=== PATIENT | male | born 1965 | race Caucasian/White ===

== ENCOUNTER 2017-09-03 12:39 | Inpatient (IN) | payer OTHER, MEDICARE ==
[~2017-09-03] VITALS: Ht 188 cm; Wt 97.1 kg
[2017-09-03 12:54] VITALS: BP 144/99; PULSE 77; RESP 18; TEMP 98.1; O2SAT 98
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
[2017-09-03 16:35] LABS: AUTOMATED NEUTROPHIL # 6.4 TH/MM3 (1.8-7.7); BASOPHIL % 0.5 % (0.0-2.0); EOSINOPHIL # 0.1 TH/MM3 (0-0.4); EOSINOPHIL % 1.4 % (0.0-4.0); HEMO FLAGS DIFF FINAL; LYMPH % 20.6 % (9.0-44.0); LYMPHOCYTE # 1.9 TH/MM3 (1.0-4.8); MEAN CELL VOLUME 84.5 FL (80.0-100.0); MEAN CORPUSCULAR HEMOGLOBIN 29.3 PG (27.0-34.0); MEAN CORPUSCULAR HGB CONC 34.6 % (32.0-36.0); MONO % 6.7 % (0.0-8.0); NEUT % 70.8 % (16.0-70.0); PLATELET COUNT 161 TH/MM3 (150-450); RED BLOOD COUNT 5.09 MIL/MM3 (4.50-5.90); RED CELL DISTRIBUTION WIDTH 14.4 % (11.6-17.2)
[2017-09-03 16:49] LABS: ANION GAP 3 MEQ/L (5-15); AST (GOT) 22 U/L (15-37); BICARBONATE 32.7 MEQ/L (21.0-32.0); BLOOD UREA NITROGEN 16 MG/DL (7-18); CHLORIDE 101 MEQ/L (98-107); GLOMERULAR FILTRATION RATE 61 ML/MIN (>89); POTASSIUM 4.5 MEQ/L (3.5-5.1); SODIUM (NA) 137 MEQ/L (136-145)
[2017-09-03 16:50] LABS: ALT (GPT) 39 U/L (12-78)
[2017-09-03 16:52] LABS: ALCOHOL LESS THAN 3 MG/DL (0-5)
[2017-09-03 16:53] LABS: ALKALINE PHOSPHATASE 99 U/L (45-117); TOTAL BILIRUBIN ADULT 0.4 MG/DL (0.2-1.0)
[2017-09-03 18:41] VITALS: BP 156/112; PULSE 85; RESP 18; O2SAT 98
[2017-09-03] MEDS ORDERED: PROS5TAB PO (19:11)
[2017-09-03] MEDS ORDERED: THIO50TA PO (19:11)
[2017-09-03] MEDS ORDERED: CETI10CA3 PO (19:11)
[2017-09-03] MEDS ORDERED: TAMS5CAP PO (19:11)
[2017-09-03 23:52] VITALS: BP 149/63; PULSE 90; RESP 18; O2SAT 98
[2017-09-04] VITALS (7 sets, daily range): BP systolic 111–168; BP diastolic 57–97; PULSE 65–91; RESP 12–17; TEMP 97–100; O2SAT 96–99
[2017-09-04] MEDS ORDERED: LORazepam 2 MG/ML VIAL IM PRN (10:15)
[2017-09-04] MEDS ORDERED: ALUMINUM/MAGNESIUM/SIMETH 30 ML CUP PO PRN (10:15)
[2017-09-04] MEDS ORDERED: LORazepam 1 MG TAB PO PRN (10:15)
[2017-09-04] MEDS ORDERED: MAGNESIUM HYDROXIDE SUSP 30 ML CUP PO PRN (10:15)
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
[2017-09-04] MEDS: CETIRIZINE HCL 10 MG TAB PO SCH (13:30)
--- NOTE | 2017-09-04 15:30 | PD.CONS ---
HPI Service [facility] Hospitalists Consult Requested By Dr. Salazar Reason for Consult "History of multiple medical issues. Please evaluate and treat." Primary Care Physician Jordon Langford MD Diagnoses: (1) Ear pain (2) Mental developmental delay (3) Adjustment disorder with mixed disturbance of emotions and conduct History of Present Illness The patient is a 52-year-old male with history of mental retardation who presented to emergency department under Ramirez act and is currently admitted to the medical/psychiatric unit under the care of psychiatry. Hospitalist consultation was requested for management of multiple medical problems. Patient is a poor historian due to his mental status. He is unable to provide further history. Information is gathered from discussion with the patient's nurse and review of the electronic medical record. The patient's chronic medications include Proscar and Flomax. No other significant medical history reported. The patient is unaware of any medical problems. He states simply that his ears hurt area and apparently he had bilateral tympanostomy tubes placed just over a week ago. Review of Systems ROS Limitations: Poor Historian (secondary to mental retardation) Past Family Social History Allergies: Coded Allergies: carbamazepine (Verified Allergy, Unknown, 09/03/17) Past Medical History Mental retardation Past Surgical History Unobtainable Reported Medications Thioridazine 50 mg twice a day Flomax 0.4 mg daily at bedtime Zyrtec 10 mg daily Proscar 5 mg twice a day Family History Unobtainable Social History Per electronic record, no history of alcohol/tobacco/illicit drug use. Physical Exam Vital Signs Vital Signs Date Time Temp Pulse Resp B/P (MAP) Pulse Ox O2 Delivery O2 Flow Rate FiO2 09/04/17 14:42 97.0 86 12 168/78 (108) 09/04/17 12:14 66 16 125/66 (85) Room Air 09/04/17 11:21 100.0 66 16 125/66 (85) 09/04/17 06:33 73 17 111/61 (78) 09/04/17 03:42 65 17 116/57 (76) 99 09/03/17 23:52 90 18 149/63 (91) 98 Room Air 09/03/17 18:41 85 18 156/112 (127) 98 Room Air Physical Exam GENERAL: Disheveled male in no acute distress. HEENT: Normocephalic, atraumatic. Pupils equal, round and reactive. Extraocular movements intact. No scleral icterus. No injection or drainage. Oropharynx is clear. Mucous membranes are moist. Bilateral tympanostomy tubes in place. Mild erythema noted tympanic membranes bilaterally, but no apparent drainage. CARDIOVASCULAR: Regular rate and rhythm without murmurs, gallops, or rubs. RESPIRATORY: Clear to auscultation. No wheezes, rales, or rhonchi. Breathing is non-labored. GASTROINTESTINAL: Abdomen soft, non-tender, nondistended. EXTREMITIES: No lower extremity edema. No calf tenderness. PSYCH: Alert, oriented only to person. Laboratory Laboratory Tests Test 09/03/17 16:08 09/03/17 16:10 White Blood Count 9.0 Red Blood Count 5.09 Hemoglobin 14.9 Hematocrit 43.0 Mean Corpuscular Volume 84.5 Mean Corpuscular Hemoglobin 29.3 Mean Corpuscular Hemoglobin Concent 34.6 Red Cell Distribution Width 14.4 Platelet Count 161 Mean Platelet Volume 8.0 Neutrophils (%) (Auto) 70.8 Lymphocytes (%) (Auto) 20.6 Monocytes (%) (Auto) 6.7 Eosinophils (%) (Auto) 1.4 Basophils (%) (Auto) 0.5 Neutrophils # (Auto) 6.4 Lymphocytes # (Auto) 1.9 Monocytes # (Auto) 0.6 Eosinophils # (Auto) 0.1 Basophils # (Auto) 0.0 CBC Comment DIFF FINAL Differential Comment Blood Urea Nitrogen 16 Creatinine 1.23 Random Glucose 110 Total Protein 7.1 Albumin 4.0 Calcium Level 8.8 Alkaline Phosphatase 99 Aspartate Amino Transf (AST/SGOT) 22 Alanine Aminotransferase (ALT/SGPT) 39 Total Bilirubin 0.4 Sodium Level 137 Potassium Level 4.5 Chloride Level 101 Carbon Dioxide Level 32.7 Anion Gap 3 Estimat Glomerular Filtration Rate 61 Ethyl Alcohol Level LESS THAN 3 Urine Opiates Screen NEG Urine Barbiturates Screen NEG Urine Amphetamines Screen NEG Urine Benzodiazepines Screen NEG Urine Cocaine Screen NEG Urine Cannabinoids Screen NEG Result Diagram: 09/03/17 1608 09/03/17 1608 Assessment and Plan Assessment and Plan 1. Adjustment disorder, schizophrenia: Management per psychiatry. 2. Ear pain: Bilateral. Patient recently had tympanostomy tubes placed bilaterally. There is no erythema of the external auditory canal. There is no pustular drainage noted. Only mild erythema of bilateral tympanic membranes. Monitor. 3. Continue home medications including Proscar, Flomax. Miguelangel Rose MD Sep 04, 2017 15:30
[2017-09-04] MEDS: QUEtiapine FUMARATE 100 MG TAB PO SCH (21:02)
[2017-09-04] MEDS: ACETAMINOPHEN 325 MG TAB PO PRN (21:03)
[2017-09-04] MEDS: TAMSULOSIN HCL 0.4 MG CAP PO SCH (21:03)
[2017-09-04] MEDS: FINASTERIDE 5 MG TAB PO SCH (21:25)
[2017-09-05 06:22] VITALS: BP 113/60; PULSE 78; RESP 18; TEMP 97.3; O2SAT 96
[2017-09-05] MEDS: CETIRIZINE HCL 10 MG TAB PO SCH (08:04)
[2017-09-05] MEDS: FINASTERIDE 5 MG TAB PO SCH ×2 (08:04→21:10)
[2017-09-05] MEDS: QUEtiapine FUMARATE 100 MG TAB PO SCH ×2 (08:04→21:10)
[2017-09-05 08:13] LABS: AUTOMATED NEUTROPHIL # 7.2 TH/MM3 (1.8-7.7); BASOPHIL % 0.4 % (0.0-2.0); EOSINOPHIL # 0.2 TH/MM3 (0-0.4); HEMATOCRIT 43.9 % (39.0-51.0); HEMO FLAGS DIFF FINAL; LYMPH % 18.1 % (9.0-44.0); LYMPHOCYTE # 1.8 TH/MM3 (1.0-4.8); MEAN CELL VOLUME 84.5 FL (80.0-100.0); MEAN CORPUSCULAR HEMOGLOBIN 28.6 PG (27.0-34.0); MEAN CORPUSCULAR HGB CONC 33.8 % (32.0-36.0); MONO % 6.8 % (0.0-8.0); NEUT % 72.7 % (16.0-70.0); PLATELET COUNT 173 TH/MM3 (150-450); RED CELL DISTRIBUTION WIDTH 14.1 % (11.6-17.2); WHITE BLOOD COUNT 9.9 TH/MM3 (4.0-11.0)
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
[2017-09-05 08:49] LABS: ALT (GPT) 35 U/L (12-78); ANION GAP 6 MEQ/L (5-15); AST (GOT) 15 U/L (15-37); BICARBONATE 29.2 MEQ/L (21.0-32.0); BLOOD UREA NITROGEN 15 MG/DL (7-18); CHLORIDE 101 MEQ/L (98-107); GLOMERULAR FILTRATION RATE 64 ML/MIN (>89); SODIUM (NA) 136 MEQ/L (136-145)
[2017-09-05 09:15] LABS: ALKALINE PHOSPHATASE 88 U/L (45-117); HDL CHOLESTEROL 27.2 MG/DL (40.0-60.0); LDL CHOLESTEROL 101 MG/DL (0-99); TOTAL BILIRUBIN ADULT 0.6 MG/DL (0.2-1.0)
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
[2017-09-05 11:30] LABS: HEMOGLOBIN A1a 1.1 %; HEMOGLOBIN A1b 1.7 %; HEMOGLOBIN Ao 84.9 %; HEMOGLOBIN LA1C 2.1 %; HEMOGLOBIN P3 3.6 %
[2017-09-05] MEDS: ACETAMINOPHEN 325 MG TAB PO PRN ×2 (13:13→21:11)
--- NOTE | 2017-09-05 16:07 | EKG ---
Date Performed: 09/05/2017 Time Performed: 07:25:21 PTAGE: 52 years EKG: Sinus rhythm LEFT ANTERIOR FASCICULAR BLOCK POSSIBLE LEFT VENTRICULAR HYPERTROPHY Probable left ventricular hyper trophy Nonspecific diffuse ST elevation, likely related to left ventricular hypertrophy, but pericard itis and myocardial ischemia should be excluded clinically as there is no prior tracing for compariso n. NO PREVIOUS TRACING DOCTOR: Onelia Fuentes Interpretating Date/Time 09/05/2017 16:05:08
[2017-09-05 18:19] VITALS: BP 112/60; PULSE 72; RESP 18; TEMP 98.2; O2SAT 97
[2017-09-05] MEDS: TAMSULOSIN HCL 0.4 MG CAP PO SCH (21:10)
[2017-09-06 06:02] VITALS: BP 116/61; PULSE 64; RESP 16; TEMP 98.2; O2SAT 97
[2017-09-06] MEDS ORDERED: PROS5TAB PO (08:36)
[2017-09-06] MEDS ORDERED: CETI10 PO (08:36)
[2017-09-06] MEDS ORDERED: QUET1TAB8 PO (08:36)
[2017-09-06] MEDS ORDERED: TAMS5CAP PO (08:36)
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
[2017-09-06] MEDS: CETIRIZINE HCL 10 MG TAB PO SCH (09:40)
[2017-09-06] MEDS: FINASTERIDE 5 MG TAB PO SCH (09:40)
[2017-09-06] MEDS: QUEtiapine FUMARATE 100 MG TAB PO SCH (09:40)
[2017-09-06] MEDS: ACETAMINOPHEN 325 MG TAB PO PRN (09:41)
== END 2017-09-06 12:20 | disposition home or self-care (01) | DRG 882 ==
LOC: NEDAMB 12:39 → NEDA 09-04 10:08 → H4EA 09-04 12:20
PROVIDERS: ADMIT Student in an Organized Health Care Education/Training Program; ATTEND Student in an Organized Health Care Education/Training Program
DX: F43.25 Adjustment disorder with mixed disturbance of emotions and conduct (principal); F79 Unspecified intellectual disabilities; E66.3 Overweight; R45.87 Impulsiveness; H91.90 Unspecified hearing loss, unspecified ear; F81.9 Developmental disorder of scholastic skills, unspecified
CPT/HCPCS: 80053; 80061; 80307; 82306; 82607; 83036; 84443; 85025; 93005